=== PATIENT | male | born 1980 | race Caucasian/White ===

== ENCOUNTER 2021-08-23 18:12 | Emergency (ER) | payer SELFPAY ==
[~2021-08-23] VITALS: Ht 162.6 cm; Wt 74.1 kg
[2021-08-23 18:21] VITALS: BP 114/79
== END 2021-08-23 19:15 | disposition home or self-care (01) ==
LOC: ER 18:14
DX: Z76.0 Encounter for issue of repeat prescription (principal); F17.200 Nicotine dependence, unspecified, uncomplicated; Z72.89 Other problems related to lifestyle; Z56.0 Unemployment, unspecified; Z88.0 Allergy status to penicillin
CPT/HCPCS: 99281

== ENCOUNTER 2024-06-03 02:49 | Emergency (ER) | payer BC, MEDICAID ==
[~2024-06-03] VITALS: Ht 160 cm; Wt 81.5 kg
[2024-06-03 03:27] LABS: BASOPHILS % (AUTO) 0.6 % (0-1); EOSINOPHILS # (AUTO) 0.1 X10'3 (0-0.9); HEMATOCRIT 37.4 % (42.0-52.0); HEMOGLOBIN 13.1 g/dl (14.0-17.9); LYMPHOCYTES # (AUTO) 1.8 X10'3 (1.1-4.8); LYMPHOCYTES % (AUTO) 26.7 % (21-51); MEAN CORPUSCULAR HEMOGLOBIN 33.2 PG (27.0-31.0); MEAN CORPUSCULAR HGB CONC 35.1 g/dL (33.0-36.5); MEAN CORPUSCULAR VOLUME 94.6 FL (78-98); MEAN PLATELET VOLUME 6.6 FL (7.4-10.4); MONOCYTES # (AUTO) 0.4 X10'3 (0-0.9); MONOCYTES % (AUTO) 6.6 % (2-12); NEUTROPHILS # (AUTO) 4.3 X10'3 (1.8-7.7); NEUTROPHILS % (AUTO) 65.1 % (42-75); PLATELET COUNT 240 X10'3 (140-440); RED BLOOD COUNT 3.95 X10'6 (4.70-6.10); RED CELL DISTRIBUTION WIDTH 13.7 % (11.5-14.5); WHITE BLOOD COUNT 6.6 X10'3 (4.5-11.0)
[2024-06-03 03:53] LABS: ALANINE AMINOTRANSFERASE 21 U/L (12-78); ALBUMIN 4.1 G/DL (3.4-5.0); ALKALINE PHOSPHATASE 86 IU/L (46-116); ANION GAP 4 (8-16); ASPARTATE AMINO TRANSFERASE 17 U/L (10-37); BILIRUBIN,DIRECT 0.2 MG/DL (0-0.3); BILIRUBIN,TOTAL 0.5 MG/DL (0.1-1.0); BLOOD UREA NITROGEN 11 MG/DL (7-18); BUN/CREATININE RATIO 15.3 (10.0-20.0); CALCIUM 9.2 MG/DL (8.5-10.1); CHLORIDE 105 MMOL/L (99-107); CREATININE 0.72 MG/DL (0.60-1.10); ETHANOL < 10 MG/DL (<10); GLUCOSE 97 MG/DL (70-104); MAGNESIUM 1.8 MG/DL (1.5-2.4); POTASSIUM 3.5 MMOL/L (3.5-5.1); PRO BRAIN NATRIURETIC PEPTIDE 402 PG/ML (0-125); SODIUM 139 MMOL/L (135-145); TOTAL CARBON DIOXIDE 29.7 MMOL/L (24-32); TOTAL PROTEIN 8.1 G/DL (6.4-8.2); eCRCL 105 ML/MIN; eGFR > 90 ML/MIN
[2024-06-03] MEDS: normal saline 1000ML IV soln IVB ONE ×2 (04:19→04:48)
[2024-06-03 04:36] LABS: APTT 28 SECONDS (22-32); PROTHROMBIN TIME 10.6 SECONDS (9.0-12.0)
[2024-06-03] MEDS ORDERED: iohexol 350MG/ML 100ml bottle IV ONE (04:36)
[2024-06-03] MEDS: LORazepam 2 mg/ml vial IV ONE (04:47)
[2024-06-03] MEDS: aspirin 81mg tab.chew PO ONE (04:48)
[2024-06-03 06:51] VITALS: BP 133/82; PULSE 96; RESP 16; TEMP 98; O2SAT 99
== END 2024-06-03 06:50 | disposition home or self-care (01) ==
LOC: ER 02:50
DX: R00.2 Palpitations (principal); F41.9 Anxiety disorder, unspecified; Z86.73 Personal history of transient ischemic attack (TIA), and cerebral infarction without residual deficits; Z88.0 Allergy status to penicillin
CPT/HCPCS: 36415; 80048; 80076; 80320; 83735; 83880; 84484; 85025; 85610; 85651; 85730; 86140; 93005; 96361; 96374; 99284; J2060; J7030; Q9967